=== PATIENT | female | born 1950 | race Caucasian/White ===

== ENCOUNTER 2016-11-19 19:11 | Observation (INO) | payer OTHER, MEDICARE ==
[2016-11-19 20:10] LABS: BASO # 0.1 K/uL (0.0-0.2); BASO % 0.8 % (0.0-2.0); EOS # 0.2 K/uL (0.0-0.7); EOS % 2.9 % (0.0-4.0); HEMATOCRIT 44.1 % (34.0-47.0); LYMPH % 26.8 % (20.0-40.0); MEAN CELL VOLUME 95.2 fl (81.0-99.0); MEAN CORPUSCULAR HEMOGLOBIN 31.9 pg (27.0-31.0); MEAN CORPUSCULAR HGB CONC 33.5 g/dL (33.0-37.0); MEAN PLATELET VOLUME 8.6 fl (7.2-11.7); MONO # 0.5 K/uL (0.0-0.8); MONO % 7.3 % (0.0-10.0); NEUT # 4.6 K/uL (1.8-7.0); NEUT % 62.2 % (50.0-75.0); RED CELL DISTRIBUTION WIDTH 12.4 % (11.5-14.5); WHITE BLOOD COUNT 7.4 K/uL (4.8-10.8)
--- NOTE | 2016-11-19 20:18 | ED PDOC ---
HPI: Chest Pain Time Seen by Provider: 11/19/16 19:32 Chief Complaint (Nursing): Chest Pain Chief Complaint (Provider): Chest Pain History Per: Patient History/Exam Limitations: no limitations Onset/Duration Of Symptoms: Hrs (x5) Current Symptoms Are (Timing): Still Present Additional Complaint(s): Haley Rodriguez is a 66 year old female with previous medical history of diabetes , hypertension and angina, who presents to the emergency department with a complaint of midsternal chest pain radiating to her back associated with bilateral hand numbness ongoing since 16:00 today. Denied fever, chills, leg swelling or pain. Patient stated she took a nitroglycerin tablet sublingually and aspirin earlier with some relief of symptoms. Of note, she also reported traveling to [place] last week and hit her head on a cave wall but denied loss of consciousness. PMD: Salas Sena MD Past Medical History Vital Signs: Last Vital Signs Temp 98.0 F 11/19/16 19:18 Pulse 77 11/19/16 19:18 Resp 16 11/19/16 19:18 BP 151/80 H 11/19/16 19:18 Pulse Ox 100 11/19/16 20:23 - Family History Family History: States: Unknown Family Hx - Allergies Allergies/Adverse Reactions: Allergies Allergy/AdvReac Type Severity Reaction Status Date / Time No Known Allergies Allergy Verified 11/19/16 19:18 JAVED Risk Score for UA/NSTEMI - JAVED Risk Score Age > 64: YES 3 or more CAD Risk Factors: YES Known CAD (Stenosis greater than 50%): NO Aspirin use in past 7 days: YES Severe Angina: YES EKG ST changes greater than 0.5mm: NO Positive Cardiac Marker: NO JAVED Score: 4 Risk %: 20% Review of Systems ROS Statement: Except As Marked, All Systems Reviewed And Found Negative Constitutional: Negative for: Fever, Chills Cardiovascular: Positive for: Chest Pain (radiates to back) Musculoskeletal: Negative for: Leg Pain (or swelling) Neurological: Positive for: Numbness (bilateral hands) Physical Exam - Reviewed Nursing Documentation Reviewed: Yes Vital Signs Reviewed: Yes - Physical Exam Appears: Positive for: Well, Non-toxic, No Acute Distress Head Exam: Positive for: ATRAUMATIC, NORMAL INSPECTION, NORMOCEPHALIC Cardiovascular/Chest: Positive for: Regular Rate, Rhythm. Negative for: Chest Non Tender Respiratory: Positive for: Normal Breath Sounds. Negative for: Crackles, Rales , Rhonchi, Wheezing, Respiratory Distress Gastrointestinal/Abdominal: Positive for: Normal Exam, Bowel Sounds, Soft. Negative for: Tenderness Back: Positive for: Normal Inspection. Negative for: L CVA Tenderness, R CVA Tenderness Extremity: Positive for: Normal ROM. 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 O2 Sat by Pulse Oximetry: 100 (RA) Pulse Ox Interpretation: Normal - Radiology X-Ray: Interpreted by Me X-Ray Interpretation: No Acute Disease Medical Decision Making Medical Decision Making: Initial Impression: Chest pain Initial Plan: * EKG * Labs * Troponin I * D Dimer * CXR * PTT * PT * Accucheck Scribe Attestation: Documented by Yolie Arriola, acting as a scribe for Elizabeth Arias MD. Provider Scribe Attestation: All medical record entries made by the Scribe were at my direction and personally dictated by me. I have reviewed the chart and agree that the record accurately reflects my personal performance of the history, physical exam, medical decision making, and the department course for this patient. I have also personally directed, reviewed, and agree with the discharge instructions and disposition. Disposition - Clinical Impression Clinical Impression: Chest pain - Patient ED Disposition Is Patient to be Admitted: Yes - Disposition Disposition Time: 21:47 Condition: STABLE Forms: [facility] - Pt Status Changed To: Hospital Disposition Of: Observation - POA Present On Arrival: None
[2016-11-19 20:26] LABS: ALB/GLOB RATIO 1.3 (1.0-2.1); ALKALINE PHOSPHATASE 41 U/L (38-126); ALT/SGPT 23 U/L (9-52); AST/SGOT 35 U/L (14-36); BILIRUBIN,TOTAL 0.6 mg/dl (0.2-1.3); BLOOD UREA NITROGEN 18 mg/dl (7-17); CALCIUM 10.6 mg/dL (8.4-10.2); CARBON DIOXIDE 27 mmol/L (22-30); CHLORIDE 101 mmol/L (98-107); GFR AFRICAN-AMERICAN > 60; GLUCOSE,RANDOM 148 mg/dL (65-105); POTASSIUM 4.5 MMOL/L (3.6-5.0); SODIUM 140 mmol/l (132-148); TOTAL PROTEIN 8.4 G/DL (6.3-8.2)
[2016-11-19 20:28] LABS: PARTIAL THROMBOPLASTIN TIME 32.7 Seconds (25.6-37.1)
[2016-11-20] MEDS ORDERED: NITROGLYCERIN 4.9 GM SPRAY TL PRN (01:08)
[2016-11-20 06:47] LABS: ALB/GLOB RATIO 1.3 (1.0-2.1); ALKALINE PHOSPHATASE 34 U/L (38-126); ALT/SGPT 24 U/L (9-52); AST/SGOT 28 U/L (14-36); BILIRUBIN,TOTAL 0.6 mg/dl (0.2-1.3); BLOOD UREA NITROGEN 18 mg/dl (7-17); CALCIUM 10.2 mg/dL (8.4-10.2); CARBON DIOXIDE 24 mmol/L (22-30); CHLORIDE 104 mmol/L (98-107); GFR AFRICAN-AMERICAN > 60; GLUCOSE,RANDOM 117 mg/dL (65-105); POTASSIUM 3.9 MMOL/L (3.6-5.0); SODIUM 140 mmol/l (132-148); TOTAL PROTEIN 7.3 G/DL (6.3-8.2)
[2016-11-20 06:53] LABS: BASO % 0.7 % (0.0-2.0); EOS # 0.3 K/uL (0.0-0.7); EOS % 4.1 % (0.0-4.0); HEMATOCRIT 40.6 % (34.0-47.0); LYMPH # 3.2 K/uL (1.0-4.3); LYMPH % 42.8 % (20.0-40.0); MEAN CELL VOLUME 94.4 fl (81.0-99.0); MEAN CORPUSCULAR HEMOGLOBIN 31.9 pg (27.0-31.0); MEAN CORPUSCULAR HGB CONC 33.8 g/dL (33.0-37.0); MEAN PLATELET VOLUME 8.8 fl (7.2-11.7); MONO # 0.7 K/uL (0.0-0.8); MONO % 9.5 % (0.0-10.0); NEUT # 3.2 K/uL (1.8-7.0); NEUT % 42.9 % (50.0-75.0); NRBC % 0.1 % (0.0-0.0); RED CELL DISTRIBUTION WIDTH 12.3 % (11.5-14.5); WHITE BLOOD COUNT 7.6 K/uL (4.8-10.8)
[2016-11-20] MEDS ORDERED: GlipiZIDE 5 mg SR Tab PO SCH (08:00)
[2016-11-20] MEDS ORDERED: Metoprolol Succinate 100 mg XL Tab PO SCH (09:00)
[2016-11-20] MEDS ORDERED: Pravastatin Sodium 40 MG TAB PO SCH (09:00)
[2016-11-20] MEDS ORDERED: Enoxaparin 40 mg Syringe SC SCH (09:00)
[2016-11-20] MEDS ORDERED: RAMIPRIL PO SCH (09:00)
[2016-11-20] MEDS ORDERED: Omega-3-Acid Ethyl Esters 1 GM Cap PO SCH (09:00)
[2016-11-20] MEDS ORDERED: Pneumococcal 23-Valent Vaccine IM ONE (09:00)
--- NOTE | 2016-11-20 09:12 | CP.PCM.HP ---
History of Present Illness - History of Present Illness History of Present Illness: 66 year old female presented to ED with complaints of chest pain and pressure that began while she was watching television. Pain was midsternal and she described it as pain with pressure that radiated to the back, with associated numbness of bilateral hands. She took NG with temporary relief of sx. No history of symptoms occuring on exertion. She reports symptoms have happened in the past for which she was seen at [facility]Patient went to PCPs office yesterday and was sent to ER. She feels better since admission. No longer has complaints of chest pain/ pressure or numbness of her hands. Denies fevers, chills, headaches, dyspnea, abdominal pain, nausea, vomiting, diarrhea, dysuria, pedal edema. PMH: DM, HTN, angina Medications: reviewed Allergies: NKDA Present on Admission - Present on Admission Any Indicators Present on Admission: No Past Patient History - Past Medical History & Family History Past Medical History?: Yes - Past Social History Smoking Status: Never Smoked - CARDIAC Hx Angina: Yes Hx Hypertension: Yes - PULMONARY Hx Respiratory Disorders: No - NEUROLOGICAL Hx Neurological Disorder: No - ENDOCRINE/METABOLIC Hx Diabetes Mellitus Type 2: Yes - MUSCULOSKELETAL/RHEUMATOLOGICAL Hx Falls: No - PSYCHIATRIC Hx Substance Use: No - SURGICAL HISTORY Hx Section: Yes (x1) Hx Cholecystectomy: Yes Hx Orthopedic Surgery: Yes (left knee) Hx Tubal Ligation: Yes - ANESTHESIA Hx Anesthesia: Yes Hx Anesthesia Reactions: No Meds Allergies/Adverse Reactions: Allergies Allergy/AdvReac Type Severity Reaction Status Date / Time No Known Allergies Allergy Verified 11/19/16 19:18 Physical Exam - Constitutional Appears: Well, No Acute Distress - Head Exam Head Exam: ATRAUMATIC, NORMAL INSPECTION, NORMOCEPHALIC - Eye Exam Eye Exam: EOMI, Normal appearance, PERRL - ENT Exam ENT Exam: Mucous Membranes Moist, Normal Exam - Respiratory Exam Respiratory Exam: Clear to Auscultation Bilateral, NORMAL BREATHING PATTERN. absent: Rales, Rhonchi, Wheezes - Cardiovascular Exam Cardiovascular Exam: REGULAR RHYTHM, RRR, +S1, +S2. absent: Bradycardia, Tachycardia Additional comments: +murmur - GI/Abdominal Exam GI & Abdominal Exam: Normal Bowel Sounds, Soft. absent: Distended, Guarding, Tenderness - Extremities Exam Extremities exam: Negative for: pedal edema, tenderness - Neurological Exam Neurological exam: Alert, CN II-XII Intact, Oriented x3 - Psychiatric Exam Psychiatric exam: Normal Affect, Normal Mood - Skin Skin Exam: Dry, Intact, Normal Color, Warm Results - Vital Signs Recent Vital Signs: Last Vital Signs Temp 97.6 F 11/20/16 08:43 Pulse 99 H 11/20/16 09:05 Resp 20 11/20/16 08:43 BP 148/72 11/20/16 09:06 Pulse Ox 99 11/20/16 08:43 - Labs Result Diagrams: 11/20/16 05:00 11/20/16 05:00 Labs: Laboratory Results - last 24 hr 11/20/16 11/20/16 11/20/16 05:00 05:00 05:15 WBC 7.6 RBC 4.30 Hgb 13.7 Hct 40.6 MCV 94.4 MCH 31.9 H MCHC 33.8 RDW 12.3 Plt Count 217 MPV 8.8 Neut % (Auto) 42.9 L Lymph % (Auto) 42.8 H Henderson % (Auto) 9.5 Eos % (Auto) 4.1 H Baso % (Auto) 0.7 Neut # 3.2 Lymph # 3.2 Henderson # 0.7 Eos # 0.3 Baso # 0.0 Sodium 140 Potassium 3.9 Chloride 104 Carbon Dioxide 24 Anion Gap 16 BUN 18 H Creatinine 0.9 Est GFR ( Amer) > 60 Est GFR (Non-Af Amer) > 60 POC Glucose (mg/dL) 111 H Random Glucose 117 H Calcium 10.2 Total Bilirubin 0.6 AST 28 ALT 24 Alkaline Phosphatase 34 L Troponin I < 0.0120 NT-Pro-B Natriuret Pep 332 Total Protein 7.3 Albumin 4.2 Globulin 3.1 Albumin/Globulin Ratio 1.3 Assessment & Plan (1) Chest pain Assessment and Plan: 66 year old female with hx of DM, HTN, angina admitted for chest pain. Likely due to unstable angina given that sx have resolved with NG. Troponins negative x 2, awaiting final troponin. EKG reviewed BP controlled. Nitro SL PRN Cardiology consult : Dr. Carias, awaiting further recommendations Status: Acute (2) Non-insulin dependent type 2 diabetes mellitus Assessment and Plan: Insulin sliding scale resume home medications accuchecks achs Status: Acute (3) HTN (hypertension) Assessment and Plan: controlled with present management Status: Acute (4) DVT prophylaxis Assessment and Plan: lovenox Status: Acute
--- NOTE | 2016-11-20 10:13 | RAD ---
HISTORY: CP COMPARISON: No prior. FINDINGS: LUNGS: No active pulmonary disease. PLEURA: No significant pleural effusion identified, no pneumothorax apparent. CARDIOVASCULAR: Potential cardiac enlargement intrinsically although scoliotic deformity and frontal radiography may be accentuating the true cardiac size. OSSEOUS STRUCTURES: No significant abnormalities. VISUALIZED UPPER ABDOMEN: Normal. OTHER FINDINGS: None. IMPRESSION: Intrinsic mild cardiomegaly versus technical magnification. No acute infiltrate bilaterally.
[2016-11-20] MEDS: Insulin Lispro (humaLOG) 100 Units/ml Inj SC SCH ×2 (12:00→17:21)
[2016-11-20 16:22] VITALS: PULSE 64; RESP 14
[2016-11-20 20:24] VITALS: BP 119/71; TEMP 98.8; O2SAT 98
--- NOTE | 2016-11-20 21:54 | CP.PCM.CON ---
History of Present Illness - History of Present Illness History of Present Illness: I was asked to see patient by Dr. Sena. Patient is a 66 year old male with PMH HTN, hypercholesterolemia, DM who presents with chest pain. Patient describes a pressure like sensation in the chest which she described as occurring last evening. She was dyspneic, and presented to [facility]. The patient has ruled out for myocardial infarction. Review of Systems - Constitutional Constitutional: absent: As Per HPI, Anorexia, Chills, Daytime Sleepiness, Excessive Sweating, Fatigue, Fever, Frequent Falls, Headache, Increased Appetite , Lethargy, Malaise, Night Sweats, Snoring, Sleep Apnea, Weight Gain, Weight Loss, Weakness, Other - EENT Eyes: absent: As Per HPI, Blind Spots, Blurred Vision, Change in Vision, Decreased Night Vision, Diplopia, Discharge, Dry Eye, Exophthalmos, Floaters, Irritation, Itchy Eyes, Loss of Peripheral Vision, Pain, Photophobia, Requires Corrective Lenses, Sees Flashes, Spots in Vision, Tunnel Vision, Other Visual Disturbances, Loss of Vision, Other Ears: absent: As Per HPI, Decreased Hearing, Ear Discharge, Ear Pain, Tinnitus, Abnormal Hearing, Disequilibrium, Dizziness, Other Nose/Mouth/Throat: absent: As Per HPI, Epistaxis, Nasal Congestion, Nasal Discharge, Nasal Obstruction, Nasal Trauma, Nose Pain, Post Nasal Drip, Sinus Pain, Sinus Pressure, Bleeding Gums, Change in Voice, Dental Pain, Dry Mouth, Dysphagia, Halitosis, Hoarsness, Lip Swelling, Mouth Lesions, Mouth Pain, Odynophagia, Sore Throat, Throat Swelling, Tongue Swelling, Facial Pain, Neck Pain, Neck Mass, Other - Cardiovascular Cardiovascular: Chest Pain, Dyspnea - Respiratory Respiratory: absent: As Per HPI, Cough, Dyspnea, Hemoptysis, Dyspnea on Exertion , Wheezing, Snoring, Stridor, Pain on Inspiration, Chest Congestion, Excessive Mucous Production, Change in Mucous Color, Pain with Coughing, Other - Gastrointestinal Gastrointestinal: absent: As Per HPI, Abdominal Pain, Belching, Bloating, Change in Bowel Habits, Change in Stool Character, Coffee Ground Emesis, Constipation, Cramping, Diarrhea, Dyspepsia, Dysphagia, Early Satiety, Excessive Flatus, Fecal Incontinence, Heartburn, Hematemesis, Hematochezia, Loose Stools, Melena, Nausea, Odynophagia, Temesmus, Vomiting, Other - Genitourinary Genitourinary: absent: As Per HPI, Change in Urinary Stream, Difficulty Urinating, Dysuria, Flank Pain, Hematuria, Pyuria, Nocturia, Urinary Incontinence, Urinary Frequency, Urinary Hesitance, Urinary Urgency, Voiding Freq/Small Amts, Freq UTI, Hx Renal/Bladder Calculi, Hx /Renal Surgery, Bladder Distension, Other - Musculoskeletal Musculoskeletal: absent: As Per HPI, Abnormal Gait, Arthralgias, Atrophy, Back Pain, Deformity, Joint Swelling, Limited Range of Motion, Loss of Height, Muscle Cramps, Muscle Weakness, Myalgias, Neck Pain, Numbness, Radiating Pain into Limb, Stiffness, Tingling, Other - Integumentary Integumentary: absent: As Per HPI, Acne, Alopecia, Bleeding Lesions, Change in Hair, Change in Nails, Change in Pigmentation, Changing Lesions, Dry Skin, Erythema, Furuncle, Hirsutism, Lesions, New Lesions, Non-Healing Lesions, Photosensitivity, Pruritus, Rash, Skin Pain, Skin Ulcer, Sores, Striae, Swelling , Unusual Bruising, Wounds, Jaundice, Other - Neurological Neurological: absent: As Per HPI, Abnormal Gait, Abnormal Hearing, Abnormal Movements, Abnormal Speech, Behavioral Changes, Burning Sensations, Confusion, Convulsions, Disequilibrium, Dizziness, Numbness, Focal Weakness, Frequent Falls , Headaches, Lack of Coordination, Loss of Vision, Memory Loss, Paresthesias, Radicular Pain, Restless Legs, Sensory Deficit, Syncope, Tingling, Tremor, Vertigo, Weakness, Other Visual Disturbances, Other - Psychiatric Psychiatric: absent: As Per HPI, Abnormal Sleep Pattern, Anhedonia, Anxiety, Auditory Hallucinations, Behavioral Changes, Change in Appetite, Change in Libido, Confusion, Depression, Difficulty Concentrating, Hallucinations, Homicidal Ideation, Hopelessness, Irritability, Memory Loss, Mood Swings, Panic Attacks, Paranoia, Suicidal Ideation, Visual Hallucinations, Tactile Hallucinations, Other - Endocrine Endocrine: absent: As Per HPI, Change in Body Appearance, Change in Libido, Cold Intolorance, Deepening of Voice, Excessive Sweating, Fatigue, Flushing, Heat Intolorance, Increase in Ring/Shoe/Hat Size, Palpitations, Polydipsia, Polyphagia, Polyuria, Other - Hematologic/Lymphatic Hematologic: absent: As Per HPI, Easy Bleeding, Easy Bruising, Lymphadenopathy, Other Past Patient History - Past Medical History & Family History Past Medical History?: Yes - Past Social History Smoking Status: Never Smoked - CARDIAC Hx Angina: Yes Hx Hypertension: Yes - PULMONARY Hx Respiratory Disorders: No - NEUROLOGICAL Hx Neurological Disorder: No - ENDOCRINE/METABOLIC Hx Diabetes Mellitus Type 2: Yes - MUSCULOSKELETAL/RHEUMATOLOGICAL Hx Falls: No - PSYCHIATRIC Hx Substance Use: No - SURGICAL HISTORY Hx Section: Yes (x1) Hx Cholecystectomy: Yes Hx Orthopedic Surgery: Yes (left knee) Hx Tubal Ligation: Yes - ANESTHESIA Hx Anesthesia: Yes Hx Anesthesia Reactions: No Meds Allergies/Adverse Reactions: Allergies Allergy/AdvReac Type Severity Reaction Status Date / Time No Known Allergies Allergy Verified 11/19/16 19:18 Physical Exam - Constitutional Appears: Non-toxic - Head Exam Head Exam: NORMAL INSPECTION - Eye Exam Eye Exam: Normal appearance - ENT Exam ENT Exam: Mucous Membranes Moist - Neck Exam Neck exam: Positive for: Full Rom - Respiratory Exam Respiratory Exam: NORMAL BREATHING PATTERN - Cardiovascular Exam Cardiovascular Exam: REGULAR RHYTHM - GI/Abdominal Exam GI & Abdominal Exam: Normal Bowel Sounds - Rectal Exam Rectal Exam: Deferred - Extremities Exam Extremities exam: Positive for: pedal edema - Back Exam Back exam: NORMAL INSPECTION - Neurological Exam Neurological exam: Alert, Oriented x3 - Psychiatric Exam Psychiatric exam: Normal Affect - Skin Skin Exam: Normal Color Results - Vital Signs Recent Vital Signs: Last Vital Signs Temp 98.8 F 11/20/16 20:24 Pulse 64 11/20/16 20:24 Resp 14 11/20/16 20:24 BP 119/71 11/20/16 20:24 Pulse Ox 98 11/20/16 20:24 - Labs Result Diagrams: 11/20/16 05:00 11/20/16 05:00 Labs: Laboratory Results - last 24 hr 11/20/16 11/20/16 11/20/16 05:00 05:00 05:15 WBC 7.6 RBC 4.30 Hgb 13.7 Hct 40.6 MCV 94.4 MCH 31.9 H MCHC 33.8 RDW 12.3 Plt Count 217 MPV 8.8 Neut % (Auto) 42.9 L Lymph % (Auto) 42.8 H Winston % (Auto) 9.5 Eos % (Auto) 4.1 H Baso % (Auto) 0.7 Neut # 3.2 Lymph # 3.2 Winston # 0.7 Eos # 0.3 Baso # 0.0 Sodium 140 Potassium 3.9 Chloride 104 Carbon Dioxide 24 Anion Gap 16 BUN 18 H Creatinine 0.9 Est GFR ( Amer) > 60 Est GFR (Non-Af Amer) > 60 POC Glucose (mg/dL) 111 H Random Glucose 117 H Calcium 10.2 Total Bilirubin 0.6 AST 28 ALT 24 Alkaline Phosphatase 34 L Troponin I < 0.0120 NT-Pro-B Natriuret Pep 332 Total Protein 7.3 Albumin 4.2 Globulin 3.1 Albumin/Globulin Ratio 1.3 11/20/16 11/20/16 11:17 12:45 WBC RBC Hgb Hct MCV MCH MCHC RDW Plt Count MPV Neut % (Auto) Lymph % (Auto) Winston % (Auto) Eos % (Auto) Baso % (Auto) Neut # Lymph # Winston # Eos # Baso # Sodium Potassium Chloride Carbon Dioxide Anion Gap BUN Creatinine Est GFR ( Amer) Est GFR (Non-Af Amer) POC Glucose (mg/dL) 156 H Random Glucose Calcium Total Bilirubin AST ALT Alkaline Phosphatase Troponin I < 0.0120 NT-Pro-B Natriuret Pep Total Protein Albumin Globulin Albumin/Globulin Ratio - EKG Data EKG Interpreted by: Myself EKG shows normal: Sinus rhythm Assessment & Plan (1) Chest pain Assessment and Plan: patient ruled out for myocardial infarction. She has DM which is a risk factor for CAD. She will need evaluation for myocardial ischemia. The patient will be scheduled for an outpatient stress test. Status: Acute (2) HTN (hypertension) Assessment and Plan: blood pressure control Status: Acute (3) Non-insulin dependent type 2 diabetes mellitus Assessment and Plan: risk factor for CAD. Status: Acute
--- NOTE | 2016-11-21 10:35 | CARD ---
APPROVED REPORT EXAM: Two-dimensional and M-mode echocardiogram with Doppler and color Doppler. Other Information Quality : GoodRhythm : NSR INDICATION Chest Pain 2D DIMENSIONS IVSd0.89 (0.7-1.1cm)LVDd3.80 (3.9-5.9cm) LVOT Diameter1.97 (1.8-2.4cm)PWd0.87 (0.7-1.1cm) IVSs1.52 (0.8-1.2cm)LVDs2.37 (2.5-4.0cm) FS (%) 37.6 %PWs1.54 (0.8-1.2cm) M-Mode DIMENSIONS Left Atrium (MM)4.59 (2.5-4.0cm)IVSd1.03 (0.7-1.1cm) Aortic Root3.26 (2.2-3.7cm)LVDd4.32 (4.0-5.6cm) Aortic Cusp Exc.1.97 (1.5-2.0cm)PWd1.26 (0.7-1.1cm) IVSs1.71 cmFS (%) 54 % LVDs2.00 (2.0-3.8cm)PWs1.53 cm Mitral Valve MV E Xkdvbfzt16.0cm/sMV DECEL [id number] A Amupnmgv977.0cm/s MV BTZ56gtH/A ratio0.7MVA (PHT)2.23cm2 TDI Medial E' Peak V6.44cm/sE/Lateral E'0.0E/Medial E'13.7 Pulmonary Valve PV Peak Pejzzlmr606.3cm/s Tricuspid Valve TR Peak Avkzqoql502qz/sRAP [id number] Peak Gr.21mmHg SVOR28edXm LEFT VENTRICLE The left ventricle is normal size. There is normal left ventricular wall thickness. The left ventricular function is normal. The left ventricular ejection fraction is 65% There is normal LV segmental wall motion. Tissue Doppler imaging reveals abnormal left ventricular diastolic dysfunction. Transmitral Doppler flow pattern is Grade I-abnormal relaxation pattern. No left ventricle thrombus noted on this study. There is no ventricular septal defect visualized. There is no left ventricular aneurysm. There is no mass noted in the left ventricle. RIGHT VENTRICLE The right ventricle is normal size. There is normal right ventricular wall thickness. The right ventricular systolic function is normal. ATRIA The left atrium size is normal. The right atrium size is normal. A PFO ( patent foramen ovale) is incidentally noted AORTIC VALVE The aortic valve is normal in structure and function. There is trace aortic regurgitation. There is no aortic valvular stenosis. There is no aortic valvular vegetation. MITRAL VALVE Mitral annular calcification is moderate. The mitral valve leaflets are calcified. There is no evidence of mitral valve prolapse. There is no mitral valve stenosis. There is no mitral valve regurgitation noted. TRICUSPID VALVE The tricuspid valve is normal in structure and function. There is no tricuspid valve regurgitation noted. There is no tricuspid valve prolapse or vegetation. There is no tricuspid valve stenosis. PULMONIC VALVE The pulmonary valve is normal in structure and function. There is no pulmonic valvular regurgitation. There is no pulmonic valvular stenosis. GREAT VESSELS The aortic root is normal in size. The ascending aorta is normal in size. The IVC is normal in size and collapses >50% with inspiration. PERICARDIAL EFFUSION The pericardium appears normal. There is no pleural effusion. <Conclusion> Normal LV systolic function Trace AI Mitral Annular Calcification PFO
--- NOTE | 2016-11-21 11:36 | CARD ---
APPROVED REPORT EKG Measurement Heart [id number] VT [id number] <Conclusion> Normal sinus rhythm Normal ECG
== END 2016-11-20 21:06 | disposition home or self-care (01) ==
LOC: H.ER 19:11 → H.ERHOLD 21:46 → H.TEL 11-20 00:01
PROVIDERS: ADMIT Family Medicine; ATTEND Family Medicine
DX: I20.0 Unstable angina (principal); I10 Essential (primary) hypertension; E11.9 Type 2 diabetes mellitus without complications; E78.00 Pure hypercholesterolemia, unspecified; Z23 Encounter for immunization; Z79.84 Long term (current) use of oral hypoglycemic drugs
CPT/HCPCS: 36415; 71010; 80053; 82948; 83880; 84484; 85025; 85378; 85610; 85730; 90471; 90732; 93005; 93306; 99284; G0378; J1650